=== PATIENT | male | born 1990 | race Two or more races ===

== ENCOUNTER 2021-07-26 20:25 | Emergency (ER) | payer BC, MEDICAID ==
[~2021-07-26] VITALS: Ht 170.2 cm; Wt 66.4 kg
[~2021-07-26 20:25] MED LIST: AZIT250T PO; CLIN-97 PO; EPIN0.3A3 IM; FAMO-1 PO; HYDR-4353 PO; IBUP-1573 PO; NAPR-996 PO; ONDA4TAB59 PO; TAM75C PO
[2021-07-26] MEDS ORDERED: iohexol 300mg/ml 100ml inj. ONE (20:59)
[2021-07-26] MEDS ORDERED: famotidine/PF 10 mg/ml inj IV ONE (21:00)
[2021-07-26] MEDS ORDERED: normal saline 1000ml 1,000 ML IV ONE (21:00)
[2021-07-26] MEDS ORDERED: ondansetron/PF 4mg/2ml inj IV ONE (21:00)
[2021-07-26 21:06] LABS: BASOPHILS # (AUTO) 0.1 X10'3 (0-0.2); BASOPHILS % (AUTO) 1.2 % (0-1); EOSINOPHILS # (AUTO) 0.2 X10'3 (0-0.9); EOSINOPHILS % (AUTO) 4.4 % (0-6); HEMATOCRIT 34.1 % (42.0-52.0); HEMOGLOBIN 11.1 g/dl (14.0-17.9); LYMPHOCYTES % (AUTO) 44.2 % (21-51); MEAN CORPUSCULAR HEMOGLOBIN 20.5 PG (27.0-31.0); MEAN CORPUSCULAR HGB CONC 32.6 g/dL (33.0-36.5); MEAN PLATELET VOLUME 8.3 FL (7.4-10.4); MONOCYTES # (AUTO) 0.7 X10'3 (0-0.9); MONOCYTES % (AUTO) 15.3 % (2-12); NEUTROPHILS # (AUTO) 1.6 X10'3 (1.8-7.7); NEUTROPHILS % (AUTO) 34.9 % (42-75); PLATELET COUNT 243 X10'3 (140-440); RED BLOOD COUNT 5.42 X10'6 (4.70-6.10); RED CELL DISTRIBUTION WIDTH 15.4 % (11.5-14.5); WHITE BLOOD COUNT 4.6 X10'3 (4.5-11.0)
[2021-07-26 21:09] LABS: ALANINE AMINOTRANSFERASE 23 U/L (12-78); ALBUMIN 4.1 G/DL (3.4-5.0); ALBUMIN/GLOBULIN RATIO 1.4 (1.1-1.5); ALKALINE PHOSPHATASE 59 IU/L (46-116); ANION GAP 10 (8-16); ASPARTATE AMINO TRANSFERASE 17 U/L (10-37); BILIRUBIN,TOTAL 0.5 MG/DL (0.1-1.0); BLOOD UREA NITROGEN 15 MG/DL (7-18); BUN/CREATININE RATIO 14.6 (5.4-32.0); CALCIUM 8.7 MG/DL (8.5-10.1); CHLORIDE 102 MMOL/L (99-107); CREATININE 1.03 MG/DL (0.60-1.10); GLUCOSE 82 MG/DL (70-104); POTASSIUM 3.6 MMOL/L (3.5-5.1); SODIUM 143 MMOL/L (135-145); TOTAL CARBON DIOXIDE 30.9 MMOL/L (24-32); TOTAL PROTEIN 7.1 G/DL (6.4-8.2); eGFR 83 ML/MIN
[2021-07-26 21:10] LABS: LIPASE 428 U/L (73-393)
[2021-07-26] MEDS ORDERED: ONDA4TAB12 PO (21:53)
[2021-07-26] MEDS ORDERED: FAMO40TA73 PO (21:53)
[2021-07-26 21:55] VITALS: BP 122/81
[2021-07-26 22:01] LABS: CLARITY,URINE CLEAR (Clear); COLOR,URINE YELLOW (Yellow); UA COLLECTION TYPE CLN CATCH MIDSTREAM
[2021-07-26 22:02] LABS: GLUCOSE, URINE NEGATIVE (Neg); KETONES,URINE NEGATIVE (Neg); LEUKOCYTE ESTERASE ,URINE NEGATIVE (Neg); NITRITES, URINE NEGATIVE (Neg); OCCULT BLOOD,URINE NEGATIVE (Neg); PROTEIN,URINE NEGATIVE (Neg); UROBILINOGEN,URINE 0.2 E.U/dL (0.2-1.0)
[2021-07-26 23:54] LABS: BANDS% (MANUAL) 2 % (0-10); LYMPHOCYTES % (MANUAL) 46 % (21-51); NEUTROPHILS % (MANUAL) 30 % (42-75); TOTAL CELLS COUNTED 100
[2021-07-26 23:55] LABS: EOSINOPHILS % (MANUAL) 3 % (0-6); MICROCYTOSIS 2+; MONOCYTES % (MANUAL) 19 % (2-12); PLATELET ESTIMATE NORMAL
== END 2021-07-26 22:06 | disposition home or self-care (01) ==
LOC: ER 20:25
DX: R10.84 Generalized abdominal pain (principal); F12.90 Cannabis use, unspecified, uncomplicated; Z72.89 Other problems related to lifestyle; Z98.890 Other specified postprocedural states; Z88.0 Allergy status to penicillin; Z88.6 Allergy status to analgesic agent; Z79.2 Long term (current) use of antibiotics; Z79.899 Other long term (current) drug therapy
CPT/HCPCS: 36415; 74177; 80053; 81003; 83690; 85007; 85025; 96361; 96374; 96375; 99285; J2405; J3490; J7030; Q9967

== ENCOUNTER 2022-04-23 08:22 | Day surgery (SDC) | payer OTHER ==
[2022-04-17 10:17] LABS: BASOPHILS # (AUTO) 0.1 X10'3 (0-0.2); BASOPHILS % (AUTO) 1.2 % (0-1); EOSINOPHILS # (AUTO) 0.2 X10'3 (0-0.9); EOSINOPHILS % (AUTO) 3.6 % (0-6); LYMPHOCYTES # (AUTO) 1.1 X10'3 (1.1-4.8); LYMPHOCYTES % (AUTO) 20.9 % (21-51); MEAN CORPUSCULAR HEMOGLOBIN 20.6 PG (27.0-31.0); MEAN CORPUSCULAR HGB CONC 31.4 g/dL (33.0-36.5); MEAN CORPUSCULAR VOLUME 65.6 FL (78-98); MEAN PLATELET VOLUME 8.2 FL (7.4-10.4); MONOCYTES # (AUTO) 0.4 X10'3 (0-0.9); MONOCYTES % (AUTO) 7.1 % (2-12); NEUTROPHILS # (AUTO) 3.5 X10'3 (1.8-7.7); NEUTROPHILS % (AUTO) 67.2 % (42-75); PRE OP HEMATOCRIT 38.6 % (42.0-52.0); PRE OP HEMOGLOBIN 12.1 g/dL (14.0-17.9); PRE OP PLATELET COUNT 260 X10'3 (140-440); RED BLOOD COUNT 5.88 X10'6 (4.70-6.10); RED CELL DISTRIBUTION WIDTH 15.1 % (11.5-14.5)
[2022-04-17 10:34] LABS: MICROCYTOSIS 2+; PLATELET ESTIMATE NORMAL; SCHISTOCYTES FEW
[2022-04-17 10:35] LABS: ELLIPTOCYTES FEW; TARGET CELLS FEW
[2022-04-17 10:36] LABS: ALBUMIN 4.4 G/DL (3.4-5.0); ALBUMIN/GLOBULIN RATIO 1.3 (1.1-1.5); ALKALINE PHOSPHATASE 51 IU/L (46-116); BLOOD UREA NITROGEN 11 MG/DL (7-18); BUN/CREATININE RATIO 12.5 (5.4-32.0); CALCIUM 8.9 MG/DL (8.5-10.1); CHLORIDE 102 MMOL/L (99-107); CREATININE 0.88 MG/DL (0.60-1.10); PRE OP ALT 16 U/L (30-65); PRE OP ANION GAP 7 (8-16); PRE OP AST 13 U/L (10-37); PRE OP BILIRUB, TOTAL 0.5 MG/DL (0.0-1.0); PRE OP GLUCOSE 88 MG/DL (70-104); PRE OP POTASSIUM 4.5 MMOL/L (3.4-5.1); PRE OP SODIUM 140 MMOL/L (135-145); TOTAL CARBON DIOXIDE 31.5 MMOL/L (24-32); TOTAL PROTEIN 7.7 G/DL (6.4-8.2); eGFR > 90 ML/MIN
[2022-04-23] VITALS (9 sets, daily range): BP systolic 94–135; BP diastolic 64–79
[~2022-04-23] VITALS: Ht 170.2 cm; Wt 71.3 kg
[~2022-04-23 08:22] MED LIST changes: -AZIT250T PO; -CLIN-97 PO; -EPIN0.3A3 IM; -FAMO-1 PO; -HYDR-4353 PO; -IBUP-1573 PO; -NAPR-996 PO; +NO HOME MEDS; -ONDA4TAB59 PO; -TAM75C PO; +clindamycin-Cleocin 900mg/D5W 50 ML IV ONE; +famotidine 20mg tablet PO ONE; +ringers solution, lacted 1,000 ML IV SCH
[2022-04-23] MEDS ORDERED: BUPIVAcaine/PF 2.5 mg/ml (0.25%) 30ml vial ONE (09:42)
[2022-04-23] MEDS ORDERED: LIDOcaine 1% 30ml preserv. free vial ONE (09:42)
[2022-04-23] MEDS ORDERED: glycopyrrolate 0.2mg/ml inj ONE (10:32)
[2022-04-23] MEDS ORDERED: dexamethasone sod phosphate 10mg/ml inj ONE (10:32)
[2022-04-23] MEDS ORDERED: neostigmine methylsulfate 1 MG/ML 10ml vial ONE (10:32)
[2022-04-23] MEDS ORDERED: sevoflurane 250ml liquid IH ONE (10:32)
[2022-04-23] MEDS ORDERED: meperidine/PF 25mg/ml syringe ONE ×3 (10:34→12:25)
[2022-04-23] MEDS ORDERED: propofol inj 20 ML IV ONE (10:34)
[2022-04-23] MEDS ORDERED: fentaNYL/PF 50MCG/1 ML 2ML syringe ONE (10:34)
[2022-04-23] MEDS ORDERED: rocuronium 10mg/ml inj IV ONE (10:34)
[2022-04-23] MEDS ORDERED: midazolam 1 mg/ML 2ml injection ONE (10:34)
[2022-04-23] MEDS ORDERED: ondansetron/PF 4mg/2ml inj ONE (10:42)
[2022-04-23] MEDS ORDERED: ringers solution, lacted 1,000 ML IV SCH (11:50)
[2022-04-23] MEDS ORDERED: proCHLORperazine 10 MG/2 ml inj IV PRN (11:50)
[2022-04-23] MEDS ORDERED: ondansetron/PF 4mg/2ml inj IV PRN (11:50)
[2022-04-23] MEDS ORDERED: morphine 4 MG/ML inj SYRINge IV PRN (11:50)
[2022-04-23] MEDS ORDERED: morphine 2 MG/ML inj. syringe IV PRN (11:50)
[2022-04-23] MEDS ORDERED: meperidine/PF 25mg/ml syringe IV PRN ×2 (11:50)
--- NOTE | 2022-04-23 12:09 | NUR ---
Received from OR via [facility], accompanied by Anesthesiologist DR ROSSI and report given by Anesthesiolgist. PT PRESENTS WITH PIV 20G RIGHT FOREARM, ABD DRESSING CDI, VSS. Addendum: 04/23/22 at 1218 by Kaylee Patel RN, RN Amended: Links added.
[2022-04-23] MEDS ORDERED: oxyCODONE IR 5mg (immed. release) tablet PO PRN (12:20)
[2022-04-23] MEDS ORDERED: ketorolac tromethamine 15mg/ml inj. IV ONE (12:20)
--- NOTE | 2022-04-23 12:20 | NUR ---
PT REPORTS ABD PAIN 07/27, DEMEROL OVERRIDE DUE TO EM[facility] MEDS NOT BEING VERIFIED Addendum: 04/23/22 at 1238 by Kaylee Patel RN, RN Amended: Links added.
--- NOTE | 2022-04-23 12:25 | NUR ---
PT CO ABD PAIN 07/27, DEMEROL OVERRIDE DUE TO MEDICATIONS NOT BEING VERIFIED IN EMAR. Addendum: 04/23/22 at 1238 by Kaylee Patel RN, RN Amended: Links added.
--- NOTE | 2022-04-23 13:10 | NUR ---
PT UP OUT OF GURNEY AND AMBULATED TO THE RESTROOM WITH STEADY GAIT. PT URINATED 200MLS OF URINE INTO URINAL.
--- NOTE | 2022-04-23 13:29 | NUR ---
AL DC CRITERIA HAS BEEN MET, IV DC WITH CANULA INTACT, VSS PAIN 03/26. DC INSTRUCTIONS REVIEWED WITH PT, PT VERBALIZED UNDERSTANDING WITH NO FURTHER QUESTIONS AT [facility] TIME. PT TAKEN OUT OF THE HOSPITAL IN WHEELCHAIR WHERE SEDRICK WAS WAITING IN PRIVATE VEHICLE TO TAKE PT HOME. Addendum: 04/23/22 at 1337 by Kaylee Patel RN, RN Amended: Links added.
== END 2022-04-23 13:29 | disposition home or self-care (01) ==
LOC: PAS 08:22
PROVIDERS: ATTEND Surgery
DX: K40.90 Unilateral inguinal hernia, without obstruction or gangrene, not specified as recurrent (principal); K42.9 Umbilical hernia without obstruction or gangrene; F12.90 Cannabis use, unspecified, uncomplicated; Z79.899 Other long term (current) drug therapy; Z88.0 Allergy status to penicillin; Z88.8 Allergy status to other drugs, medicaments and biological substances; Z98.890 Other specified postprocedural states
CPT/HCPCS: 49585; 49650; 80053; 82948; 85025; C1781; J1100; J1885; J2175; J2250; J2270; J2405; J2704; J2710; J3010; J3490; J7030; J7120; S2900; Z7506; Z7508; Z7512; 85008; A4215; A4618

== ENCOUNTER 2022-06-08 09:37 | Emergency (ER) | payer OTHER ==
[~2022-06-08] VITALS: Ht 170.2 cm; Wt 72.7 kg
[~2022-06-08 09:37] MED LIST changes: -clindamycin-Cleocin 900mg/D5W 50 ML IV ONE; -famotidine 20mg tablet PO ONE; -ringers solution, lacted 1,000 ML IV SCH
[2022-06-08 10:02] VITALS: BP 137/84
== END 2022-06-08 11:35 | disposition home or self-care (01) ==
LOC: ER 09:38
DX: U07.1 COVID-19 (principal); F12.10 Cannabis abuse, uncomplicated; Z88.0 Allergy status to penicillin; Z88.6 Allergy status to analgesic agent
CPT/HCPCS: 99282

== ENCOUNTER 2024-11-08 08:00 | Emergency (ER) | payer BC ==
[~2024-11-08] VITALS: Ht 170.2 cm; Wt 62.3 kg
[2024-11-08 08:04] VITALS: BP 140/81; PULSE 77; TEMP 99.1; O2SAT 99
[2024-11-08 09:20] VITALS: RESP 16
== END 2024-11-08 10:09 | disposition home or self-care (01) ==
LOC: ER 08:01
DX: S56.421D Laceration of extensor muscle, fascia and tendon of right index finger at forearm level, subsequent encounter (principal); F12.90 Cannabis use, unspecified, uncomplicated; Z72.89 Other problems related to lifestyle; Z98.890 Other specified postprocedural states; Z88.0 Allergy status to penicillin; X58.XXXD Exposure to other specified factors, subsequent encounter
CPT/HCPCS: 99281